=== PATIENT | male | born 2005 | race Caucasian/White ===

== ENCOUNTER 2023-11-08 20:30 | Emergency (ER) | payer MEDICAID, SELFPAY ==
--- NOTE | ~2023-11-08 | US_ITS ---
EXAMINATION: US ABDOMEN LIMITED CLINICAL INFORMATION: Right upper quadrant pain. COMPARISON: None available. TECHNIQUE: Real-time imaging of the gallbladder FINDINGS: GALLBLADDER: Normal. The gallbladder is physiologically distended without evidence of stones, sludge, polyps, wall thickening or pericholecystic fluid. COMMON BILE DUCT: Normal in caliber measuring 0.3 cm in diameter. US/US abdomen limited IMPRESSION: Normal gallbladder. No gallstones seen.
[2023-11-08 20:31] VITALS: BP 118/86; PULSE 95; RESP 18; TEMP 36.9; O2SAT 98; BMI 37.2
--- NOTE | 2023-11-08 20:34 | ED_ITS ---
HPI - Abdominal Pain General Chief Complaint: Abdominal Pain Stated Complaint: abd pain Time Seen by Provider: 11/08/23 22:10 Source: patient and family Mode of arrival: ambulatory Limitations: no limitations History of Present Illness HPI narrative: Pt is a 18yo male who presents to the ED with 4 days of RUQ pain. Pt states it has been constant but varies in intensity. He notes that the pain is sharp and stabbing. Pt notes the pain and nausea are worse after eating. He notes no vomiting, diarrhea, or constipation. Pt reports no fevers or chills but his father states that he felt warm earlier today. Related Data Previous Rx's Medication Instructions Recorded calcium carbonate 1,000 1 tab PO QID PRN indigestion #20 11/08/23 mg-simethicone 60 mg chewable tabs tablet (Maalox Advanced) Allergies Allergy/AdvReac Type Severity Reaction Status Date / Time No Known Allergies Allergy Verified 11/08/23 20:36 Review of Systems Constitutional: Denies chills, Denies fever(s) and Denies headache(s) Denies headache(s) Cardiovascular: Denies chest pain and Denies dyspnea Respiratory: Denies dyspnea Gastrointestinal: Reports abdominal pain (RUQ), Denies constipation, Denies diarrhea, Reports nausea and Denies vomiting Genitourinary: Denies dysuria Denies headache(s) [facility] Social History Social History Use of substances other than those prescribed or required for medical reasons: No Advance Directives: No Advance Directives Information Provided: No Physical Exam ED Vital Signs: Vital Signs - 24 hr 11/08/23 20:31 11/08/23 22:14 Temperature 98.4 F 98.3 F Pulse Rate 95 81 Respiratory Rate 18 16 Blood Pressure 118/86 123/79 Pulse Oximetry 98 99 Oxygen Delivery Method Room Air Room Air BMI result Body Mass Index 37.2 Const General: cooperative, comfortable, no acute distress, alert and awake Orientation/consciousness: patient oriented x3 HENMT Head: Yes normal to inspection Ears: hearing grossly normal bilaterally General nose exam: Normal external nose present Eyes General: appearance normal, both eyes and all related structures Resp Effort & Inspection: normal respiratory effort and able to speak in complete sentences Auscultation: clear to auscultation bilaterally Cardio Rate: regular rate Rhythm: regular rhythm Heart sounds: S1 normal heart sound present and S2 normal heart sound present GI Palpation (GI): Soft to palpation, Tenderness to palpation present (GI) in the RUQ and Howard's sign positive and no masses Auscultation: normal bowel sounds Neuro General: patient oriented x3 Course Course Course Narrative: RME: 18yo M w/no sig PMHx c/o R sided abdominal pain x4 days that fluctuates in intensity. described as stabbing/dull constant w/intermittent radiation to L side. +nausea. denies V/D Abdomen soft with RUQ/R-mid ttp no rebound or guarding Labs, UA ordered Full HPI, ROS and PE to be performed by primary ED provider. Reevaluation(s) Reevaluation #1: Patient's ultrasound was negative for biliary disease. I discussed the patient. He was advised to avoid ibuprofen for the time being and follow up with GI his pain persist Time: 23:49 Medical Decision Making Medical Decision Making [facility] Narrative: 18-year-old male presents for evaluation of right upper quadrant abdominal pain for the last 4 days. His pain is worse after eating his so seated nausea but no vomiting. He is tender in the right upper quadrant with guarding, will get an ultrasound to evaluate for biliary disease. He has no white count, normal LFTs, less likely to be acute cholecystitis. Differential Diagnosis Differential Diagnoses: The differential diagnosis associated with the presentation includes (biliary sludge, cholelithiasis, cholecystitis, gastroenteritis, constipation) Lab Data [facility] Lab Attestation statement: I reviewed the patient's lab results. No leukocytosis. Patient is a very mild anemia with a hemoglobin 13.4 hematocrit 40.9. Normal platelet count. No electrolyte abnormalities. Normal renal function, normal LFTs 11/08/23 20:50 11/08/23 20:50 Labs: Lab Results 11/08/23 11/08/23 Range/Units 20:50 21:46 WBC 9.7 (4.8-10.8) X10*3/uL RBC 4.71 (4.60-5.80) X10*6/uL Hgb 13.4 L (14.0-18.0) g/dl Hct 40.9 L (42.0-52.0) % MCV 86.8 (80.0-98.0) fL MCH 28.5 (27.0-33.0) pg MCHC 32.8 (31.0-36.0) g/dl RDW 12.3 (11.0-16.0) % Plt Count 324 (160-400) X10*3/uL MPV 8.9 L (9.4-12.4) fL Immature Gran % (Auto) 0.5 H (0.0-0.4) % Neut % (Auto) 57.9 (45-73) % Lymph % (Auto) 31.6 (20-40) % [place] % (Auto) 7.8 (2-11) % Eos % (Auto) 1.6 (0-4) % Baso % (Auto) 0.6 (0-2) % Lymph # (Auto) 3.1 (1.2-4.9) X10*3/uL [place] # (Auto) 0.8 (0.1-1.2) X10*3/uL Eos # (Auto) 0.2 (0.0-0.4) X10*3/uL Baso # (Auto) 0.1 (0.0-0.2) X10*3/uL Abs Immat Gran (auto) 0.05 H (0.00-0.03) X10*3/uL Absolute Neuts (auto) 5.6 (2.0-8.3) x10*3/uL Absolute Nucleated RBC 0.000 (0.0-0.012) X10*3/uL Nucleated RBC % (auto) 0.0 (0.0-0.2) /100WBC Sodium 142 (135-145) mmol/L Potassium 3.9 (3.3-5.1) mmol/L Chloride 108 (96-108) mmol/L Carbon Dioxide 26 (22-29) mmol/L Anion Gap 12 (12-20) BUN 16 (9-16) mg/dL Creatinine 0.85 (0.5-1.4) mg/dL Estim Creat Clear Calc 146.8 Estimated GFR > 60 Random Glucose 83 (60-115) mg/dL Calcium 9.3 (8.4-10.2) mg/dL Magnesium 2.2 (1.6-2.6) mg/dL Total Bilirubin 0.2 (0.0-1.0) mg/dL Direct Bilirubin < 0.2 (0.0-0.5) mg/dL AST 20 (5-37) U/L ALT 19 (0-40) U/L Alkaline Phosphatase 51 (39-117) U/L Total Protein 7.0 (6.5-8.0) g/dL Albumin 4.2 (3.5-5.0) g/dL Lipase 13 (8-78) U/L Urine Color Yellow Urine Appearance Clear Urine pH 6.5 (5.0-9.0) Ur Specific [place] 1.020 (1.005-1.025) Urine Protein Negative (Neg-Trace) mg/dL Urine Glucose (UA) Negative (Negative) mg/dL Urine Ketones Negative (Negative) mg/dL Urine Blood Negative (Negative) Urine Nitrite Negative (Negative) Ur Leukocyte Esterase Negative (Negative) Independent Interpretation I performed an independent interpretation of an: Ultrasound (Agree with Radiology interpretation) Radiology Impression Discussion of test interpretation with radiology: I have reviewed the radiologist's reading. (Normal gallbladder) Discharge Plan Discharge Clinical Impression: Acute upper abdominal pain Patient Disposition: Home, Self-Care Instructions: Acute Abdominal Pain (ED) Additional Instructions: Your workup in the emergency department today was reassuring. This includes your blood work, as well as your ultrasound I would avoid using ibuprofen for pain, as stomach ulcers or gastritis may be the cause of your symptoms Use Maalox as needed for breakthrough abdominal pain Follow-up with GI and number provided Prescriptions: New Maalox Advanced 1,000-60 mg tablet,chewable 1 tab PO QID PRN (Reason: indigestion) Qty: 20 0RF Referrals: Saulo Davis MD [Physician] - (epigastric abdominal pain) Stand Alone Forms: Work/School Release
[2023-11-08 20:54] LABS: MANUAL DIFF FLAG NO
[2023-11-08 20:55] LABS: Basophils Absolute Auto 0.1 X10*3/uL (0.0-0.2); Basophils Percent Auto 0.6 % (0-2); Eosinophils Absolute Auto 0.2 X10*3/uL (0.0-0.4); Eosinophils Percent Auto 1.6 % (0-4); Hematocrit 40.9 % (42.0-52.0); Hemoglobin 13.4 g/dl (14.0-18.0); Imm Gran Abs Auto 0.05 X10*3/uL (0.00-0.03); Imm Gran Pct Auto 0.5 % (0.0-0.4); Lymphocytes Absolute Auto 3.1 X10*3/uL (1.2-4.9); Lymphocytes Percent Auto 31.6 % (20-40); Mean Corpuscular HGB Conc 32.8 g/dl (31.0-36.0); Mean Corpuscular Hemoglobin 28.5 pg (27.0-33.0); Mean Corpuscular Volume 86.8 fL (80.0-98.0); Mean Platelet Volume 8.9 fL (9.4-12.4); Monocytes Absolute Auto 0.8 X10*3/uL (0.1-1.2); Monocytes Percent Auto 7.8 % (2-11); Neutrophils Absolute Auto 5.6 x10*3/uL (2.0-8.3); Neutrophils Percent Auto 57.9 % (45-73); Platelet Count 324 X10*3/uL (160-400); Red Blood Count 4.71 X10*6/uL (4.60-5.80); Red Cell Distribution Width 12.3 % (11.0-16.0); White Blood Count 9.7 X10*3/uL (4.8-10.8)
[2023-11-08 21:11] LABS: Alanine Aminotransferase 19 U/L (0-40); Albumin Level 4.2 g/dL (3.5-5.0); Alkaline Phosphatase 51 U/L (39-117); Anion Gap 12 (12-20); Aspartate Amino Transferase 20 U/L (5-37); Bilirubin Direct < 0.2 mg/dL (0.0-0.5); Bilirubin Total 0.2 mg/dL (0.0-1.0); Blood Urea Nitrogen 16 mg/dL (9-16); Calcium 9.3 mg/dL (8.4-10.2); Carbon Dioxide 26 mmol/L (22-29); Chloride 108 mmol/L (96-108); Creatinine Clr Calc Pharmacy 146.8; Estimated Glomerular Filt Rate > 60; Glucose Random 83 mg/dL (60-115); Lipase 13 U/L (8-78); Magnesium 2.2 mg/dL (1.6-2.6); Potassium 3.9 mmol/L (3.3-5.1); Sodium 142 mmol/L (135-145)
[2023-11-08 21:54] LABS: Appearance Urine Clear; Color Urine Yellow; Glucose Urine UA Negative (Negative); Leukocyte Esterase Urine Negative (Negative); Nitrite Urine Negative (Negative); PH 6.5 (5.0-9.0); Urine Blood Negative (Negative); Urine Ketones Negative (Negative); Urine Protein Negative (Neg-Trace)
[2023-11-08 22:14] VITALS: BP 123/79; PULSE 81; RESP 16; TEMP 36.8; O2SAT 99
--- NOTE | 2023-11-08 23:33 | PC.NURSE ---
pt has abd pain comes and goes, denies any n/v or fever, report unable to eat, able to tolerate liquids, denies any issues with voiding or bowel movements.
--- NOTE | 2023-11-09 00:04 | PC.NURSE ---
Reviewed discharge instructions with pt. pt verbalized understanding. no sign of distress upon discharge.
== END 2023-11-09 00:05 | disposition home or self-care (01) ==
PROVIDERS: Physician Assistant; Emergency Provider Internal Medicine
DX: R10.11 Right upper quadrant pain (principal)
CPT/HCPCS: 36415; 76705; 80048; 80076; 81003; 83690; 83735; 85025; 99284

== ENCOUNTER 2025-01-28 15:41 | Emergency (ER) | payer MEDICAID, SELFPAY ==
[2025-01-28 15:51] VITALS: BP 114/68; PULSE 72; RESP 16; TEMP 36.4; O2SAT 100; BMI 24.8
--- NOTE | 2025-01-28 15:52 | ED_ITS ---
HPI - General Adult General Chief complaint: Dizziness Stated complaint: dizziness, fainting while standing Related Data Previous Rx's ?Medication ?Instructions ?Recorded calcium carbonate 1,000 1 tab PO QID PRN indigestion #20 11/08/23 mg-simethicone 60 mg chewable tabs tablet (Maalox Advanced) Allergies Allergy/AdvReac Type Severity Reaction Status Date / Time No Known Allergies Allergy Verified 01/28/25 15:52 [facility] Social History Social History Advance Directives: No Advance Directives Information Provided: No Physical Exam ED Vital Signs: Vital Signs - 24 hr 01/28/25 15:51 Temperature 97.5 F Pulse Rate 72 Respiratory Rate 16 Blood Pressure 114/68 Pulse Oximetry 100 Oxygen Delivery Method Room Air BMI result Body Mass Index 24.8 Course Course Course Narrative: This is an RME: Additional HPI, ROS, PE not included below will be deferred to primary provider. RME assessment and note performed by: Giselle Ponce PA-C This is a [id number] who presents to the ER with a complaint of dizziness/lightheadedness ongoing for several months and abdominal pain. Reports some nausea. Patient well-appearing under no acute distress. Vital signs within normal limits. He is neurologically intact with no focal deficits on examination. Plan: Labs, EKG, further ER eval needed Reevaluation(s) Reevaluation #1: Patient left without completing treatment. Medical Decision Making Lab Data 01/28/25 16:45 01/28/25 16:45 Labs: Lab Results 01/28/25 Range/Units 16:45 WBC 4.6 L (4.8-10.8) X10*3/uL RBC 4.92 (4.60-5.80) X10*6/uL Hgb 14.7 (14.0-18.0) g/dl Hct 43.6 (42.0-52.0) % MCV 88.6 (80.0-98.0) fL MCH 29.9 (27.0-33.0) pg MCHC 33.7 (31.0-36.0) g/dl RDW 12.1 (11.0-16.0) % Plt Count 285 (160-400) X10*3/uL MPV 9.2 L (9.4-12.4) fL Immature Gran % (Auto) 0.2 (0.0-0.4) % Neut % (Auto) 53.3 (45-73) % Lymph % (Auto) 33.3 (20-40) % [place] % (Auto) 7.8 (2-11) % Eos % (Auto) 3.7 (0-4) % Baso % (Auto) 1.7 (0-2) % Lymph # (Auto) 1.5 (1.2-4.9) X10*3/uL [place] # (Auto) 0.4 (0.1-1.2) X10*3/uL Eos # (Auto) 0.2 (0.0-0.4) X10*3/uL Baso # (Auto) 0.1 (0.0-0.2) X10*3/uL Abs Immat Gran (auto) 0.01 (0.00-0.03) X10*3/uL Absolute Neuts (auto) 2.5 (2.0-8.3) x10*3/uL Absolute Nucleated RBC 0.000 (0.0-0.012) X10*3/uL Nucleated RBC % (auto) 0.0 (0.0-0.2) /100WBC Sodium 142 (135-145) mmol/L Potassium 5.1 (3.3-5.1) mmol/L Chloride 109 H (96-108) mmol/L Carbon Dioxide 27 (22-29) mmol/L Anion Gap 11 L (12-20) BUN 19 H (9-16) mg/dL Creatinine 0.80 (0.5-1.4) mg/dL Estim Creat Clear Calc 127.0 Estimated GFR > 60 Random Glucose 79 (60-115) mg/dL Calcium 10.2 D (8.4-10.2) mg/dL Magnesium 2.3 (1.6-2.6) mg/dL Total Bilirubin 1.0 (0.0-1.0) mg/dL AST 23 (5-37) U/L ALT 20 (0-40) U/L Alkaline Phosphatase 49 (39-117) U/L Troponin I High Sens < 2.7 (<3.5-35.0) ng/L Total Protein 7.3 (6.5-8.0) g/dL Albumin 4.4 (3.5-5.0) g/dL Discharge Plan Discharge Clinical Impression: Dizziness Patient Disposition: Left W/O Completing Treatment Prescriptions: No Action Maalox Advanced 1,000-60 mg tablet,chewable 1 tab PO QID PRN (Reason: indigestion) Qty: 20 0RF Discharge Date/Time: 01/28/25 22:36
--- NOTE | 2025-01-28 15:59 | ECG_ITS ---
Test Reason : dizziness Blood Pressure : */* mmHG Vent. Rate : 65 BPM Atrial Rate : 65 BPM P-R Int : 82 ms QRS Dur : 80 ms QT Int : 396 ms P-R-T Axes : 54 88 46 degrees QTcB Int : 411 ms Sinus rhythm with sinus arrhythmia with short OR Otherwise normal ECG No previous ECGs available Referred By: Giselle Ponce Electronically Signed By: RITCHIE SHER MD
[2025-01-28 16:49] LABS: MANUAL DIFF FLAG NO
[2025-01-28 17:09] LABS: Basophils Absolute Auto 0.1 X10*3/uL (0.0-0.2); Basophils Percent Auto 1.7 % (0-2); Eosinophils Absolute Auto 0.2 X10*3/uL (0.0-0.4); Eosinophils Percent Auto 3.7 % (0-4); Hematocrit 43.6 % (42.0-52.0); Hemoglobin 14.7 g/dl (14.0-18.0); Imm Gran Abs Auto 0.01 X10*3/uL (0.00-0.03); Imm Gran Pct Auto 0.2 % (0.0-0.4); Lymphocytes Absolute Auto 1.5 X10*3/uL (1.2-4.9); Lymphocytes Percent Auto 33.3 % (20-40); Mean Corpuscular HGB Conc 33.7 g/dl (31.0-36.0); Mean Corpuscular Hemoglobin 29.9 pg (27.0-33.0); Mean Corpuscular Volume 88.6 fL (80.0-98.0); Mean Platelet Volume 9.2 fL (9.4-12.4); Monocytes Absolute Auto 0.4 X10*3/uL (0.1-1.2); Monocytes Percent Auto 7.8 % (2-11); Neutrophils Absolute Auto 2.5 x10*3/uL (2.0-8.3); Neutrophils Percent Auto 53.3 % (45-73); Platelet Count 285 X10*3/uL (160-400); Red Blood Count 4.92 X10*6/uL (4.60-5.80); Red Cell Distribution Width 12.1 % (11.0-16.0); White Blood Count 4.6 X10*3/uL (4.8-10.8)
[2025-01-28 17:12] LABS: Alanine Aminotransferase 20 U/L (0-40); Albumin Level 4.4 g/dL (3.5-5.0); Anion Gap 11 (12-20); Aspartate Amino Transferase 23 U/L (5-37); Blood Urea Nitrogen 19 mg/dL (9-16); Calcium 10.2 mg/dL (8.4-10.2); Carbon Dioxide 27 mmol/L (22-29); Chloride 109 mmol/L (96-108); Estimated Glomerular Filt Rate > 60; Glucose Random 79 mg/dL (60-115); Magnesium 2.3 mg/dL (1.6-2.6); Potassium 5.1 mmol/L (3.3-5.1); Sodium 142 mmol/L (135-145); Total Protein 7.3 g/dL (6.5-8.0); Troponin-I High Sensitivity < 2.7 ng/L (<3.5-35.0)
[2025-01-28 17:43] LABS: Alkaline Phosphatase 49 U/L (39-117)
--- OUTSIDE RECORDS SUMMARY | 2025-01-28 21:50 | XMS_ITS | Encounter Summary ---
Author Organization [facility] Address [address] [place] [address] Care Team Providers Care Workers Compensation Specialist Name Role Phone José Mckeon MD Primary Care Provider [phone] Reason for Visit * Reason Onset Date Comments Dizziness 01/28/2025 Encounter Details Date Type Department Care Team (Late st Contact Info) Description 01/28/2025 Telephone Adult Medicine [facility] [place] [address] [place] [id number] José Mckeon MD [address] [place] [address] Dizziness Social History Tobacco Use Types Packs/Day Years Used Date Smoking Tobacco: Every Day Smokeless Tobacco: Former Sex and Gender Information Value Date Recorded Sex Assigned at Not on file Legal Sex Male 11:39 AM EDT Gender Identity Not on file Sexual Orientation Not on file documented as of this encounter Progress Notes * Frieda Morton RN - 01/28/2025 2:57 PM EST Pt is C/O dizziness , fatigue for the months, he has 1 - 2 episodes a day for a week, eventually hewill faint, he last fainted on Monday last EUGENE was 103/77 hr 99 Pt denies any chest pain or SOB, denies any changes in HR, has nausea no recent V/D, no falls or head trauma, pt has no confusion or changes in speech, no weakness or numbness, C/O headache no changes in vision., dizziness is worse when the pt is standing he becomes very dizzy and then faints wherever he is standing , pt has not changed or stopped medication or caffeine intake Pt is advised to go to the er for syncope and dizziness with headache and nausea * Patricia Pollock - 01/28/2025 2:44 PM EST Patient call requires triage: Symptoms patient is presenting: dizziness, fatigue, fainted remained standing. Dad took his bp 103/77 and 99 heart rate elevated How long has patient had these symptoms?: 3 days For ALL patients calling to schedule any appointment (routine, sick visit, follow up, consult, etc.) in the outpatient setting please ask the following questions: Do you have fever of higher than 101, sore throat with difficulty swallowing or severe shortness ofbreath? no If YES to any of these above symptoms, send a message to triage and do not book. Red dot. If no, an audio or video visit should be booked. Have you had close contact with someone with Coronavirus in the last 14 days? no Have you traveled abroad? no Have you traveled recently to another state outside of [place], [place], [place], [place], [place], [place], [place]? no o If yes, did you quarantine for 14 days or have a negative covid test? no If yes to any of the above, patient is not to be scheduled in office until after 14 day quarantine or negative covid test. If pain or injury related was it due to an accident at work or from a motor vehicle accident? If yes, date of accident/Injury: No If yes, gather 3rd libertarian insurance information Third Constitution Party Information: not applicable PCP: José Mckeon MD Payor: [facility] / Plan: [facility] MEDICAID / Product Type: *No Product type* / documented in this encounter Plan of Treatment Not on file documented as of this encounter Visit Diagnoses Not on filedocumented in this encounter Care Teams Workers Compensation Specialist Relationship Specialty Start Date End Date José Mckeon MD [address] [place] [address] PCP - General 05/23/24 documented as of this encounter
== END 2025-01-28 22:36 | disposition left against medical advice (07) ==
PROVIDERS: Physician Assistant Medical; Emergency Provider Emergency Medicine
DX: R42 Dizziness and giddiness (principal); I49.8 Other specified cardiac arrhythmias; R10.9 Unspecified abdominal pain; R11.0 Nausea
CPT/HCPCS: 36415; 80053; 83735; 84484; 85025; 93005; 99283

== ENCOUNTER → 2025-01-28 15:59 | Outpatient (BNV) | payer MEDICAID, SELFPAY | PROVIDERS: Emergency Provider Emergency Medicine; Visit Provider Internal Medicine Cardiovascular Disease | DX: I49.9 Cardiac arrhythmia, unspecified (principal); I45.6 Pre-excitation syndrome | CPT/HCPCS: 93010 ==